=== PATIENT | female | born 1970 | race Caucasian/White ===

== ENCOUNTER 2019-04-28 12:12 | Inpatient (IN) | payer OTHER ==
[~2019-04-28] VITALS: Ht 165.1 cm; Wt 72.6 kg
[2019-04-28] MEDS ORDERED: ZIAC 2.5-6.251 EACH (12:19)
[2019-05-06] MEDS ORDERED: Ursodiol 300MG CAPSU PO (07:46)
[2019-05-06] MEDS ORDERED: INTEGRA PLUS C1 EACH PO (07:54)
== END 2019-05-06 08:50 | disposition home or self-care (01) | DRG 446 ==
LOC: ER 12:12 → EDBD 20:03 → SURG 20:03
PROVIDERS: ADMIT Internal Medicine
PROC: BW40ZZZ Ultrasonography of Abdomen (ICD-10-PCS; 2019-04-28)
PROC: BF37ZZZ Magnetic Resonance Imaging (MRI) of Pancreas (ICD-10-PCS; 2019-04-29)
PROC: 0FC98ZZ Extirpation of Matter from Common Bile Duct, Via Natural or Artificial Opening Endoscopic (ICD-10-PCS; principal; 2019-05-01)
DX: K80.62 Calculus of gallbladder and bile duct with acute cholecystitis without obstruction (principal)

== ENCOUNTER 2019-08-19 05:49 | Day surgery (SDC) | payer OTHER ==
[~2019-08-19 05:49] MED LIST: INTEGRA PLUS C1 EACH PO; Ursodiol 300MG CAPSU PO; ZIAC 2.5-6.251 EACH
== END 2019-08-19 10:06 | disposition home or self-care (01) ==
LOC: CIR.AMB 05:49 → EDSTATUS 12:30 → AMB-ERCP 12:30
DX: K80.70 Calculus of gallbladder and bile duct without cholecystitis without obstruction (principal)

== ENCOUNTER 2019-09-03 11:48 | Inpatient (IN) | payer OTHER ==
[~2019-09-03] VITALS: Ht 154.9 cm; Wt 66.0 kg
[2019-09-04] MEDS ORDERED: ACTIGALL300 MG (07:58)
== END 2019-09-13 11:24 | disposition designated cancer center or children's hospital (05) | DRG 444 ==
LOC: ER 11:48 → MEDJ 22:37
PROVIDERS: ADMIT Internal Medicine
PROC: BW40ZZZ Ultrasonography of Abdomen (ICD-10-PCS; 2019-09-03)
PROC: 0F798DZ Dilation of Common Bile Duct with Intraluminal Device, Via Natural or Artificial Opening Endoscopic (ICD-10-PCS; principal; 2019-09-04)
DX: K80.43 Calculus of bile duct with acute cholecystitis with obstruction (principal); A41.59 Other Gram-negative sepsis; R65.20 Severe sepsis without septic shock; D50.8 Other iron deficiency anemias